=== PATIENT | male | born 1990 | race Caucasian/White ===

== ENCOUNTER 2019-07-28 10:05 | Emergency (ER) | payer BC ==
[~2019-07-28] VITALS: Ht 185.4 cm; Wt 90.0 kg
[2019-07-28 10:08] VITALS: BP 123/82
[2019-07-28] MEDS ORDERED: triamcinolone acetonide 40mg/ml inj IM ONE (10:45)
[2019-07-28] MEDS ORDERED: METH4TAB81 PO (11:06)
[2019-07-28] MEDS ORDERED: TRIA15CR61 TP (11:07)
== END 2019-07-28 11:17 | disposition home or self-care (01) ==
LOC: ER 10:05
DX: L23.9 Allergic contact dermatitis, unspecified cause (principal); Z79.899 Other long term (current) drug therapy
CPT/HCPCS: 96372; 99284; J3301